=== PATIENT | male | born 1935 | race Caucasian/White ===

== ENCOUNTER 2018-07-25 22:27 | Inpatient (IN) | payer MEDICARE ==
[~2018-07-25] VITALS: Ht 184.2 cm; Wt 79.4 kg
[2018-07-25] MEDS ORDERED: MAGNESIUM HYDROXIDE 30 ML UDC PO PRN (23:00)
[2018-07-25] MEDS ORDERED: MAG HYDROX/AL HYDROX/SIMETH 30 ML UDC PO PRN (23:00)
[2018-07-25] MEDS ORDERED: TEMAZEPAM 7.5 MG CAPSULE PO PRN (23:00)
--- NOTE | 2018-07-25 23:00 | NUR ---
ADMISSION NOTE: ADMITTED AN 83 YEAR OLD MALE FROM [facility] ON 5150 HOLD FOR DTS. PATIENT CAME IN TO THE UNIT AROUND 2300 BROUGHT IN BY PARAMEDICS VIA GURNEY. PATIENT WAS PLACED IN BED. PER HOLD, PATIENT WAS FOUND BY HIS SON LYING IN BED, COVERED WITH FECES, HE ALSO ADMITTED TO HAVING SUICIDAL THOUGHTS WITH AN ATTEMPT TO OVERDOSE ON XANAX. PATIENT STATED THAT HE TOOK 25 PILLS TO KILL HIMSELF. PATIENT IS A/O X3-4. HE DENIES SI/HI DURING ADMISSION INTERVIEW, HE HAS NO HX OF SUICIDE IN THE PAST. PATIENT APPEARS DEPRESSED, ANXIOUS, IRRITABLE, ANGRY, UNCOOPERATIVE, DISHEVELED, VERBALLY ABUSIVE, VERBALIZING HE WANTS TO LEAVE THE HOSPITAL. PATIENT REFUSED BODY ASSESSMENT AND MRSA SCREEN DONE. BELONGINGS WERE INVENTORIED AND CHECKED FOR ASSESSMENT. PATIENT UNABLE TO AMBULATE DUE TO WEAKNESS, TREATED WITH I.V. ANTIBIOTICS FOR PNEUMONIA TODAY. PATIENT REFUSED TO SIGN CONSENTS. PAGED AND SPOKE WITH LOTTERY CLERKJudy ABOUT MED RECON CILIATION. BED LOCKED AND PLACED ON LOWER POSITION. WILL CONTINUE TO MONITOR Q 15 MINS. TO MAINTAIN SAFETY.
[2018-07-25 23:12] VITALS: BP 161/94
[2018-07-25] MEDS ORDERED: PANT40TA4 PO (23:49)
[2018-07-25] MEDS ORDERED: ATOR10TA PO (23:49)
[2018-07-25] MEDS ORDERED: MIRT15TA7 PO (23:49)
[2018-07-25] MEDS ORDERED: PROP150T2 PO (23:49)
[2018-07-25] MEDS ORDERED: MORP60TA4 PO (23:49)
[2018-07-25] MEDS ORDERED: MEMA10TA PO (23:49)
[2018-07-25] MEDS ORDERED: HYDR12.5 PO (23:49)
[2018-07-25] MEDS ORDERED: RIVA10TA PO (23:49)
[2018-07-25] MEDS ORDERED: NITR0.4T48 SL (23:49)
[2018-07-25] MEDS ORDERED: METF500T PO (23:49)
--- NOTE | 2018-07-26 00:17 | NUR ---
PAGELandry AND SPOKE WITH Judy ALFORD ABOUT MED RECONCILIATION FOR THE NEW PATIENT, HERI. SHE SAID SHE'LL RECONCILE MEDICATIONS.
[2018-07-26] MEDS ORDERED: NITROGLYCERIN 0.4 MG/TAB BOTTLE SL SCH (02:30)
--- NOTE | 2018-07-26 03:09 | NUR ---
PATIENT ANXIOUS, IRRITABLE, ANGRY, ATIVAN 0.5 MG TAB PO GIVEN. CALL LIGHT WENT OFF, UP TO TOILET WITH STAND BY ASSIST, STEADY GAIT NOTED AND HAD A FALL AT HOME 07/25/2018 NOTED SOME OOZING FROM HIS RT. KNEE AND ARM, ASKED TO CLEAN AND DRESS THE OPEN WOUND, STATED. " NO, TURN THE LIGHT OUT, I DON'T CARE.
[2018-07-26] MEDS: LORAZEPAM 0.5 MG TABLET PO PRN ×3 (04:06→20:44)
--- NOTE | 2018-07-26 04:45 | NUR ---
GPS RN NOTE: AT AROUND 0445, STAFF HEARD A LOUD SOUND COMING FROM ROOM 215-B, WENT TO CHECK PATIENT, HE WAS FOUND ON THE FLOOR. WHEN ASKED WHAT HAPPENED, HE STATED, " I WAS ON MY WAY TO THE BATHROOM, FELT DIZZY, FELL AND HIT MY HEAD ON THE FLOOR." PATIENT SUSTAINED A BIG BUMP ON THE FOREHEAD AND SKIN TEAR ON HIS NASAL RIDGE, SWELLING NOTED, TOOK A PHOTO. PHYSICAL ASSESSMENT DONE, PATIENT WAS TO GET UP ON HIS OWN. [employer] ADMINISTRATOR ANIBAL RIVERA WAS NOTIFIED, DATE PITTER HOPE ALFORD WAS NOTIFIED, CT SCAN OF THE HEAD WITHOUT CONTRAST WAS DONE. FAMILY MEMBER, RADHA (SON) WAS ALSO NOTIFIED ABOUT THE INCIDENT. RANGE OF MOTION SATISFACTORY ON BOTH BUE AND BLE. PATIENT C/O PAIN ON HIS FOREHEAD, TYLRNOL 650 MGTAB. WILL CONTINUE TO MONITRO Q 15 MINS. TO MAINTAIN SAFETY.
[2018-07-26] MEDS: ACETAMINOPHEN 325 MG TABLET PO PRN ×2 (04:58→05:09)
--- NOTE | 2018-07-26 07:27 | NUR ---
PLACED PATIENT ON 1:1 SITTER FOR HIGH FALL RISK.
[2018-07-26 08:00] VITALS: BP 156/114
[2018-07-26 09:00] LABS: BASOPHILS % (AUTO) 0.2 % (0.0-2.0); HEMATOCRIT 36 % (39-51); HEMOGLOBIN 11.8 g/dL (13.5-17.5); LYMPHOCYTES # (AUTO) 0.7 /CMM (0.8-4.8); LYMPHOCYTES % (AUTO) 6.7 % (20.0-44.0); MEAN CORPUSCULAR HGB CONC 33 g/dl (31.0-36.0); MEAN CORPUSCULAR VOLUME 86 fL (80-96); MONOCYTES # (AUTO) 0.6 /CMM (0.1-1.30); MONOCYTES % (AUTO) 5.5 % (2.0-12.0); NEUTROPHILS # (AUTO) 9.5 /CMM (1.8-8.9); NEUTROPHILS % (AUTO) 87.6 % (43.0-81.0); PLATELET COUNT (AUTO) 191 /CMM (150-450); RED BLOOD CELL COUNT(AUTO) 4.12 MIL/uL (4.5-6.0); WHITE BLOOD COUNT (AUTO) 10.9 K/uL (4.3-11.0)
[2018-07-26 09:27] LABS: ALANINE AMINOTRANSFERASE 25 U/L (12-78); ALBUMIN 3.6 g/dL (3.4-5.0); ALKALINE PHOSPHATASE 95 U/L (46-116); ASPARTATE AMINOTRANSFERASE 29 U/L (15-37); BILIRUBIN,TOTAL 1.1 mg/dL (0.2-1.0); CALCIUM, SERUM 9.2 mg/dL (8.5-10.1); CARBON DIOXIDE 23 mmol/L (21-32); CHLORIDE 109 mmol/L (98-107); CREATININE 1.2 mg/dL (0.6-1.3); GLUCOSE 121 mg/dL (74-106); MAGNESIUM 1.8 mg/dL (1.8-2.4); PHOSPHORUS 3.2 mg/dL (2.5-4.9); POTASSIUM 3.7 mmol/L (3.5-5.1); SODIUM SERUM 145 mmol/L (136-145); THYROID STIMULATING HORMONE 0.607 uIU/mL (0.358-3.74); TOTAL PROTEIN, SERUM 6.5 g/dL (6.4-8.2); UREA NITROGEN, BLOOD 29 mg/dL (7-18)
[2018-07-26] MEDS: METFORMIN 500 MG TABLET PO SCH ×2 (10:14→17:28)
[2018-07-26] MEDS: PANTOPRAZOLE 40 MG TABLET.DR PO SCH (10:14)
[2018-07-26] MEDS: MEMANTINE HCL 5 MG TABLET PO SCH (10:18)
[2018-07-26] MEDS: HYDROCHLOROTHIAZIDE 25 MG TABLET PO SCH (10:18)
[2018-07-26] MEDS: PROPAFENONE HCL 150 MG TABLET PO SCH ×2 (10:19→17:28)
[2018-07-26 10:30] LABS: CHOLESTEROL 157 mg/dL (<200); HDL CHOLESTEROL 61 mg/dL (40-60); LDL 83 mg/dL (0-99); TRIGLYCERIDES 85 mg/dL (30-150)
[2018-07-26] MEDS: MORPHINE SULFATE SR 30 MG TABLET.SA PO SCH (14:11)
[2018-07-26 16:00] VITALS: BP 155/88
[2018-07-26] MEDS ORDERED: TEMAZEPAM 7.5 MG CAPSULE PO PRN (16:00)
[2018-07-26] MEDS: ALPRAZOLAM 0.25 MG TABLET PO SCH (17:26)
[2018-07-26] MEDS: RIVAROXABAN 10 MG TABLET PO SCH (17:28)
--- NOTE | 2018-07-26 20:00 | NUR ---
GPS RN NOTES: PT. NOTED VISUAUL MULTIPLE BRUISES, DISCOLORATION ALL HIS BODY, PT. REFUSED TO FULL BODY SKIN ASSESSMENT AND PICTURES TAKEN , PT. BEHAVIOR UNCOOPERTIVE , ENCOURAGED , EXPLAINED RISKS AND BENEFITS BUT PT. STILL REFUSED .
[2018-07-26 20:08] VITALS: BP 134/80
[2018-07-26] MEDS: ATORVASTATIN 10 MG TABLET PO SCH (21:09)
[2018-07-26] MEDS ORDERED: DULOXETINE HCL 20 MG CAPSULE.DR PO SCH (22:00)
[2018-07-27] MEDS: ACETAMINOPHEN 325 MG TABLET PO PRN (00:29)
[2018-07-27] MEDS: LORAZEPAM 0.5 MG TABLET PO PRN (02:50)
--- NOTE | 2018-07-27 06:31 | NUR ---
GPS RN NOTES: DURING SHIFT PT. BEHAVIOR UNCOOPERTIVE , EASILY AGITAED IRRITABLE HYPERVERBAL, NOTED , PT. REFUSED TO FULL BODY SKIN ASSESSMENT AND PICTURES TAKEN , PT. BEHAVIOR UNCOOPERTIVE , ENCOURAGED , EXPLAINED RISKS AND BENEFITS BUT PT. STILL REFUSED .
[2018-07-27] MEDS: PANTOPRAZOLE 40 MG TABLET.DR PO SCH (07:30)
[2018-07-27 08:00] VITALS: BP 149/80
[2018-07-27] MEDS: METFORMIN 500 MG TABLET PO SCH ×2 (08:00→18:08)
[2018-07-27] MEDS ORDERED: DULOXETINE HCL 30 MG CAPSULE.DR PO SCH (09:00)
[2018-07-27] MEDS: MEMANTINE HCL 5 MG TABLET PO SCH (09:03)
[2018-07-27] MEDS: ALPRAZOLAM 0.25 MG TABLET PO SCH ×2 (09:03→17:00)
[2018-07-27] MEDS: PROPAFENONE HCL 150 MG TABLET PO SCH ×2 (09:04→17:00)
[2018-07-27] MEDS: HYDROCHLOROTHIAZIDE 25 MG TABLET PO SCH (09:04)
--- NOTE | 2018-07-27 10:20 | NUR ---
SW spoke with pts son Carlos [phone] regarding discharge planning and collateral information.
--- NOTE | 2018-07-27 10:40 | NUR ---
INITIAL DISCHARGE PLAN: Patient wishes to return to [place] [address] [facility] [address]. ADIN spoke with pts son Carlos [phone] who states he wants pt to return home. ADIN will help form a safe and proper discharge in collaboration with pts son and MD.
--- NOTE | 2018-07-27 12:02 | NUR ---
WOUND CARE CONSULT: PT PRESENTS WITH MULTIPLE DRY ABRASIONS AND BRUISES, SKIN TEAR TO RT ELBOW AND SACRAL BRUISING. PT IS AMBULATORY AND CONTINENT. SITTER AT BEDSIDE. PT STATES HAS FALLEN IN THE PAST AND IS ON XARELTO. RECOMMENDATIONS MADE FOR WOUND CARE AND SKIN PROTECTION. DISCUSSED WITH NURSING STAFF. CURRENT CINDY SCORE IS 18. WILL SEE PRN. MILLER IN AGREEMENT WITH PLAN OF CARE. Addendum: 07/27/18 at 1204 by BORIS ROLON Amended: Links added. Addendum: 07/27/18 at 1205 by BORIS ROLON PT HAS DRY LESION TO TOP OF HEAD. PT STATES HAD SQUAMOUS CELL CANCER REMOVED PREVIOUSLY.
[2018-07-27] MEDS: MORPHINE SULFATE SR 30 MG TABLET.SA PO SCH (13:05)
[2018-07-27] MEDS ORDERED: TEMAZEPAM 7.5 MG CAPSULE PO PRN (13:30)
[2018-07-27 16:00] VITALS: BP 139/77
[2018-07-27] MEDS: RIVAROXABAN 10 MG TABLET PO SCH (17:00)
[2018-07-27] MEDS ORDERED: LEVOFLOXACIN (750 MG) 750 MG TABLET PO SCH (17:00)
[2018-07-27] MEDS: AMOX/CLAVULANATE 875 MG TABLET PO SCH (18:06)
[2018-07-27 19:55] VITALS: BP 139/75
[2018-07-27 19:59] VITALS: BP 139/75
[2018-07-27] MEDS: ATORVASTATIN 10 MG TABLET PO SCH ×2 (21:36→21:51)
--- NOTE | 2018-07-27 21:37 | NUR ---
GPS RN NOTES C/O INSOMNIA,RESTORIL 22.5MG PO GIVEN ORDERED PRN FOR INSOMNIA.
[2018-07-28] MEDS: LORAZEPAM 0.5 MG TABLET PO PRN (02:29)
--- NOTE | 2018-07-28 02:29 | NUR ---
GPS RN NOTES AWAKE,APPEARS ANXIOUS,ATIVAN 0.5MG,1TAB PO GIVEN FOR ANXIETY
[2018-07-28 08:00] VITALS: BP 143/80
[2018-07-28] MEDS: PANTOPRAZOLE 40 MG TABLET.DR PO SCH (08:15)
[2018-07-28] MEDS: METFORMIN 500 MG TABLET PO SCH ×2 (08:16→17:02)
[2018-07-28] MEDS: HYDROCHLOROTHIAZIDE 25 MG TABLET PO SCH ×2 (08:16→08:23)
[2018-07-28] MEDS: ALPRAZOLAM 0.25 MG TABLET PO SCH ×3 (08:16→16:39)
[2018-07-28] MEDS: PROPAFENONE HCL 150 MG TABLET PO SCH ×2 (08:17→16:40)
[2018-07-28] MEDS: MEMANTINE HCL 5 MG TABLET PO SCH (08:17)
[2018-07-28] MEDS: AMOX/CLAVULANATE 875 MG TABLET PO SCH ×2 (08:34→21:15)
--- NOTE | 2018-07-28 10:45 | NUR ---
GPS RN NOTE: PATIENT IS REQUESTING IS HE CAN HAVE HIS MS CONTIN 60MG EVERY 0900 IN AM INSTEAD OF 1300 TO PREVENT PAIN FROM GETTING WORST. NOTIFIED TIM SEGOVIA WITH ORDER GIVEN NOTED AND CARRIED OUT. PATIENT APPRECIATED..
[2018-07-28] MEDS: MORPHINE SULFATE SR 30 MG TABLET.SA PO SCH (11:56)
--- NOTE | 2018-07-28 14:30 | NUR ---
Support Counseling: SW and Psychiatrists Dr. Mason spoke with pt regarding his medication change and also discussed pts discharge for Wednesday and also explored pts caregiving support at home. Psychiatrist explained the benefits of starting pt on Zyprexa which will help increase his appetite and sleep. SW and Psychiatrist also spoke with pt regarding his current marijuana use and how that may be contributing negatively to his pneumonia and sleep patterns.
[2018-07-28] MEDS: DULOXETINE HCL 30 MG CAPSULE.DR PO SCH ×2 (15:04→16:39)
[2018-07-28 15:26] LABS: APPEARANCE,URINE SL CLOUDY (CLEAR); BILIRUBIN,URINE NEGATIVE (NEGATIVE); BLOOD, URINE TRACE-INTA Ery/uL (NEGATIVE); COLOR,URINE YELLOW (YELLOW); KETONES,URINE NEGATIVE (NEGATIVE); LEUKOCYTE ESTERASE ,URINE NEGATIVE (NEGATIVE); NITRITE, URINE NEGATIVE (NEGATIVE); PROTEIN,URINE TRACE mg/dl (NEGATIVE); UGLUCOSE NEGATIVE (NEGATIVE); UROBILINOGEN,URINE 0.2 EU/dL (0.2)
[2018-07-28 15:48] LABS: BACTERIA,URINE Rare /HPF (None Seen); RBC,URINE 0-2 /HPF (0-2); SQUAMOUS EPITHELIAL CELL,UR Rare /HPF (None Seen)
--- NOTE | 2018-07-28 15:57 | NUR ---
GPS RN NOTE: PATIENT NOTED WITH BLOOD TINGED IN THE SPUTUM, URINE WBC = 6-10, PNA ON THE CXRAY RESULT NOTED, PATIENT IS ON AUGMENTIN ATB, PATIENT ALSO REQUESTING ENSURE TO BE INCLUDED ON HIS MEAL, NOTIFIED TIM SEGOVIA WITH ORDERS GIVEN NOTED AND CARRIED OUT.
[2018-07-28 16:00] VITALS: BP 141/79
[2018-07-28] MEDS: RIVAROXABAN 10 MG TABLET PO SCH (16:48)
[2018-07-28] MEDS: ENSURE ENLIVE 237 ML LIQUID (VANILLA) PO SCH ×2 (17:01→21:16)
[2018-07-28 20:00] VITALS: BP 130/76
[2018-07-28] MEDS: ATORVASTATIN 10 MG TABLET PO SCH (21:15)
[2018-07-28] MEDS: TEMAZEPAM 7.5 MG CAPSULE PO PRN (21:28)
[2018-07-28] MEDS ORDERED: OLANZAPINE 2.5 MG TABLET PO SCH (22:00)
[2018-07-28] MEDS ORDERED: TEMAZEPAM 7.5 MG CAPSULE PO PRN (22:00)
[2018-07-28] MEDS ORDERED: DULOXETINE HCL 30 MG CAPSULE.DR PO SCH (22:00)
[2018-07-29 08:00] VITALS: BP 142/91
[2018-07-29] MEDS: PANTOPRAZOLE 40 MG TABLET.DR PO SCH (08:13)
[2018-07-29] MEDS: HYDROCHLOROTHIAZIDE 25 MG TABLET PO SCH (08:14)
[2018-07-29] MEDS: MEMANTINE HCL 5 MG TABLET PO SCH (08:14)
[2018-07-29] MEDS: ALPRAZOLAM 0.25 MG TABLET PO SCH ×2 (08:14→16:35)
[2018-07-29] MEDS: METFORMIN 500 MG TABLET PO SCH ×2 (08:14→17:50)
[2018-07-29] MEDS: AMOX/CLAVULANATE 875 MG TABLET PO SCH ×2 (08:14→21:08)
[2018-07-29] MEDS: MORPHINE SULFATE SR 30 MG TABLET.SA PO SCH (08:19)
[2018-07-29] MEDS: ENSURE ENLIVE 237 ML LIQUID (VANILLA) PO SCH ×5 (08:21→17:50)
--- NOTE | 2018-07-29 08:46 | NUR ---
ADIN contacted pts Son Michelet [phone] and left a voicemail for callback.
--- NOTE | 2018-07-29 08:54 | NUR ---
ADIN contacted pts son Carlos [phone] and informed him Psychiatrist has ordered discharge order for Wednesday08/01/18. Son stated pt has a good support system at home and has a security site supervisor who cooks and cleans for him and also stated that he has a friend who will be visiting him daily to ensure pt is well. Son stated that pts friend Stanford will be transporting pt home.
[2018-07-29] MEDS: PROPAFENONE HCL 150 MG TABLET PO SCH ×2 (09:31→16:36)
--- NOTE | 2018-07-29 10:30 | NUR ---
DISCHARGE PLANNING: SW spoke with pt regarding his discharge plan for Wednesday08/01/18. Pt was focused on wanting to leave on Wednesday07/31/18 and questioned why he had to wait until Wednesday to discharge. SW explained that she and Psychiatrist has a conversation with pt yesterday regarding his medication change and also explained that due to his attempt to suicide his son and clinical team wanted to ensure pt no longer had any suicidal ideation and also wanted to make sure that his mediation was stabilized before being discharged. ADIN also explained that pt is not sleeping very long and is refusing to eat the hospital food. ADIN informed pt that she spoke with his son who stated he would not be able to pick him up on Wednesday and stated that pts friend Stanford [phone] would be able to transport him home. Pt called Stanford in front of ADIN and he confirmed pear picker for 08/01/18 at 10:00am.
--- NOTE | 2018-07-29 10:44 | NUR ---
FOLLOW-UP APPOINTMENT: ADIN contacted pts psychologist Dr. Laura Lopez PHD Address: [address] [address], [place] [address] and informed her of pts current hospitalization and hold for danger to self. ADIN scheduled a follow up appointment on Wednesday08/03/18 at 1:45pm. ADIN will faxed clinical information to [phone] on day of discharge.
[2018-07-29] MEDS: DULOXETINE HCL 30 MG CAPSULE.DR PO SCH ×2 (12:12→16:35)
[2018-07-29 16:00] VITALS: BP 125/68
[2018-07-29] MEDS: RIVAROXABAN 10 MG TABLET PO SCH (16:38)
[2018-07-29 20:00] VITALS: BP 141/67
[2018-07-29] MEDS: ATORVASTATIN 10 MG TABLET PO SCH (21:08)
[2018-07-29] MEDS: OLANZAPINE 2.5 MG TABLET PO SCH (21:08)
[2018-07-29] MEDS: TEMAZEPAM 7.5 MG CAPSULE PO PRN (21:09)
[2018-07-30 08:00] VITALS: BP 141/97
[2018-07-30] MEDS: ENSURE ENLIVE 237 ML LIQUID (VANILLA) PO SCH ×3 (08:00→17:28)
--- NOTE | 2018-07-30 09:05 | NUR ---
OUT TO DESK STATING THAT HE DOES NOT FEEL GOOD,THEN SON CALLING STATING THAT PT. CALLING HIM SAYING HE DOES NOT FEEL RIGHT.VS CHECKED.BP 150/97,HEART RATE INITIALLY 116 THEN DOWN TO 101.INFORMED PT. MED RHYTHMOL DUE AND I WOULD GIVE IT TO HIM.PT. ANXIOUS,SITTER PRESENT.PULSE MANUALLY CHECKED AND REGULARLY IRREG.PT. REASSURED.
[2018-07-30] MEDS: MEMANTINE HCL 5 MG TABLET PO SCH (09:22)
[2018-07-30] MEDS: ALPRAZOLAM 0.25 MG TABLET PO SCH ×2 (09:22→17:24)
[2018-07-30] MEDS: HYDROCHLOROTHIAZIDE 25 MG TABLET PO SCH (09:22)
[2018-07-30] MEDS: METFORMIN 500 MG TABLET PO SCH ×2 (09:22→17:23)
[2018-07-30] MEDS: PROPAFENONE HCL 150 MG TABLET PO SCH ×2 (09:23→17:24)
[2018-07-30] MEDS: PANTOPRAZOLE 40 MG TABLET.DR PO SCH (09:23)
[2018-07-30] MEDS: AMOX/CLAVULANATE 875 MG TABLET PO SCH ×2 (09:23→21:06)
[2018-07-30] MEDS: MORPHINE SULFATE SR 30 MG TABLET.SA PO SCH (09:28)
--- NOTE | 2018-07-30 09:30 | NUR ---
PT. CALM,STATES FEELING BETTER,[employer] POLICE JESSICA SEGOVIA HERE AND INFORMED HIM OF EARLIER HEART RATE.
[2018-07-30] MEDS: DULOXETINE HCL 30 MG CAPSULE.DR PO SCH ×2 (13:29→17:23)
[2018-07-30 16:00] VITALS: BP 117/74
[2018-07-30] MEDS: RIVAROXABAN 10 MG TABLET PO SCH (17:25)
[2018-07-30 17:29] VITALS: BP 151/86
[2018-07-30 20:00] VITALS: BP 141/83
[2018-07-30] MEDS: ATORVASTATIN 10 MG TABLET PO SCH (21:06)
[2018-07-30] MEDS: OLANZAPINE 2.5 MG TABLET PO SCH (21:06)
[2018-07-30] MEDS: TEMAZEPAM 7.5 MG CAPSULE PO PRN (22:04)
--- NOTE | 2018-07-30 22:14 | NUR ---
RN NOTES PT. ASKED FOR SLEEPING PILL- RESTORIL 15MG PO GIVEN ORDERED, V/S STABLE
--- NOTE | 2018-07-31 07:15 | NUR ---
GPS RN INITIAL NOTES Report received at bedside. Patient received in bed, awake and responsive. No signs and symptoms of distress. No SOB noted. Denies any pain. Safety measures in place. Will continue to monitor and assess patient.
[2018-07-31 08:00] VITALS: BP 144/92
[2018-07-31] MEDS: PROPAFENONE HCL 150 MG TABLET PO SCH ×2 (08:28→17:55)
[2018-07-31] MEDS: AMOX/CLAVULANATE 875 MG TABLET PO SCH ×2 (08:28→21:08)
[2018-07-31] MEDS: HYDROCHLOROTHIAZIDE 25 MG TABLET PO SCH (08:29)
[2018-07-31] MEDS: MEMANTINE HCL 5 MG TABLET PO SCH (08:29)
[2018-07-31] MEDS: MORPHINE SULFATE SR 30 MG TABLET.SA PO SCH (08:30)
[2018-07-31] MEDS: METFORMIN 500 MG TABLET PO SCH ×2 (08:30→17:52)
[2018-07-31] MEDS: ENSURE ENLIVE 237 ML LIQUID (VANILLA) PO SCH ×3 (08:30→17:53)
[2018-07-31] MEDS: PANTOPRAZOLE 40 MG TABLET.DR PO SCH (08:30)
[2018-07-31] MEDS: LORAZEPAM 0.5 MG TABLET PO PRN (08:30)
[2018-07-31] MEDS: ALPRAZOLAM 0.25 MG TABLET PO SCH ×2 (09:25→17:53)
[2018-07-31] MEDS: DULOXETINE HCL 30 MG CAPSULE.DR PO SCH ×2 (13:43→17:53)
[2018-07-31 16:00] VITALS: BP 125/70
[2018-07-31] MEDS: RIVAROXABAN 10 MG TABLET PO SCH (17:53)
--- NOTE | 2018-07-31 18:30 | NUR ---
GPS RN CLOSING NOTES Patient remained in bed, well, verbally responsive. All due meds given and tolerated. No signs and symptoms of distress/side effects noted. No SOB noted. Kept patient clean, dry and comfortable. Continuous monitoring for safety and behavior. Safety measures in place. One-on-One sitter at bedside. Call villegas at bedside. Bed in lowest position with bed alarm on. Will endorse to oncoming shift nurse.
[2018-07-31 20:14] VITALS: BP 113/88
[2018-07-31] MEDS: TEMAZEPAM 7.5 MG CAPSULE PO PRN (21:05)
[2018-07-31] MEDS: OLANZAPINE 2.5 MG TABLET PO SCH (21:06)
[2018-07-31] MEDS: ATORVASTATIN 10 MG TABLET PO SCH (21:06)
[2018-08-01] MEDS: PANTOPRAZOLE 40 MG TABLET.DR PO SCH (07:30)
[2018-08-01 08:00] VITALS: BP 144/116
[2018-08-01] MEDS: METFORMIN 500 MG TABLET PO SCH (08:55)
[2018-08-01] MEDS: AMOX/CLAVULANATE 875 MG TABLET PO SCH (08:55)
[2018-08-01 08:56] VITALS: BP 144/80
[2018-08-01] MEDS: HYDROCHLOROTHIAZIDE 25 MG TABLET PO SCH (08:56)
[2018-08-01] MEDS: MEMANTINE HCL 5 MG TABLET PO SCH (08:57)
[2018-08-01] MEDS: MORPHINE SULFATE SR 30 MG TABLET.SA PO SCH (08:57)
[2018-08-01] MEDS: ALPRAZOLAM 0.25 MG TABLET PO SCH (08:58)
[2018-08-01] MEDS: ENSURE ENLIVE 237 ML LIQUID (VANILLA) PO SCH (08:58)
[2018-08-01] MEDS: PROPAFENONE HCL 150 MG TABLET PO SCH (09:01)
--- NOTE | 2018-08-01 10:51 | NUR ---
DISCHARGE NOTE: Pt was discharged at 10:00am via private vehicle home [address] [facility] [address]. Pts friend Stanford [phone] picked pt up and transported home. Pts son Carlos [phone] was notified and agreed with discharge plan. Pts mood was euthymic with congruent affect. Pt denied visual/auditory hallucinations and denied suicidal/homicidal ideation. Pt has a follow up appointment on Wednesday08/03/18 at 1:45pm with Psychologist: Dr. Laura Lopez Address: [address], [place] [address] . faxed clinical information to [phone]. Pt will also schedule a follow up appointment with Customer Sales Distributor Dr. Jacky You [address] [facility] [address] [address] [phone]. Patient was provided referrals to address his marijuana use. Patient was referred to the [facility] [address] [place] [address] / and was encouraged to present at 9am on Thursday August 02, 2018. Additional resources included [facility] [address] [place] [address] and [facility] [address] [place] [address] . The multidisciplinary exitcare form was done, printed, signed, and given to the patient. haley
--- NOTE | 2018-08-01 12:25 | NUR ---
MEDICAL RADIATION THERAPIST NOTE: Patient alert ,verbally responsive ,denies suicidal ideation ,denies homicidal ideation ,denies auditory visual ideation .med compliant ,no s/s of distress noted ,follow directions ,no c/o pain at this time ,vs stable focus on discharge .Patient seen by DR. Shaheed Mason called back with discharge orders all orders carried out .prescription and discharge medication given and explained to patient able to verbalize understanding .all belongings returned to patient ,patient discharge with friend with private car.
--- NOTE | 2018-08-16 15:30 | NUR ---
15 DAY SUBSTANCE ABUSE FOLLOW UP: Unable to follow up due to contact number no longer valid.
== END 2018-08-01 10:30 | disposition home or self-care (01) | DRG 885 ==
LOC: GPS 22:40
PROVIDERS: ADMIT Psychiatry & Neurology Psychosomatic Medicine; ATTEND Psychiatry & Neurology Psychiatry
DX: F33.2 Major depressive disorder, recurrent severe without psychotic features (principal); I11.0 Hypertensive heart disease with heart failure; T42.4X2A Poisoning by benzodiazepines, intentional self-harm, initial encounter; J18.9 Pneumonia, unspecified organism; F29 Unspecified psychosis not due to a substance or known physiological condition; F41.9 Anxiety disorder, unspecified; E78.5 Hyperlipidemia, unspecified; I25.10 Atherosclerotic heart disease of native coronary artery without angina pectoris; D64.9 Anemia, unspecified; E86.0 Dehydration; F03.90 Unspecified dementia, unspecified severity, without behavioral disturbance, psychotic disturbance, mood disturbance, and anxiety; I48.91 Unspecified atrial fibrillation; Z95.0 Presence of cardiac pacemaker; Z95.1 Presence of aortocoronary bypass graft; E11.9 Type 2 diabetes mellitus without complications; K21.9 Gastro-esophageal reflux disease without esophagitis; G89.4 Chronic pain syndrome; N40.0 Benign prostatic hyperplasia without lower urinary tract symptoms; G62.9 Polyneuropathy, unspecified; Z85.118 Personal history of other malignant neoplasm of bronchus and lung; Y92.89 Other specified places as the place of occurrence of the external cause; I50.9 Heart failure, unspecified; Z87.891 Personal history of nicotine dependence
CPT/HCPCS: 36415; 70450-TC; 71045-TC; 80053-TC; 80061-TC; 81000-TC; 83735-TC; 84100-TC; 84443-TC; 85025-TC; 87070-TC; 87081-TC; 87086-TC; A6402